=== PATIENT | female | born 1950 | race Caucasian/White ===

== ENCOUNTER 2020-05-18 07:34 | Outpatient (CLI) | payer BC ==
--- NOTE | 2020-05-18 13:00 | NM ---
Nuclear medicine gastric emptying study with medial History: Other gastritis without bleeding Comparison: None. Findings: Transabdominal imaging was performed after the oral administration 2.19 mCi technetium 99 M sulfur colloid orally within eggs. 42% gastric emptying at 31 minutes. 51% gastric emptying at 59 minutes. 77% gastric emptying at 2 josse rs. 75% gastric emptying at 3 hours. 78% gastric emptying at 4 hours. Impression: Delayed gastric emptying with 22% residual at 4 hours.
== END 2020-05-18 07:35 | disposition home or self-care (01) ==
LOC: NM 07:34
PROVIDERS: ATTEND Physician Assistant Medical
DX: K29.60 Other gastritis without bleeding (principal)
CPT/HCPCS: 78264; A9541

== ENCOUNTER 2021-06-19 09:52 | Outpatient (CLI) | payer BC ==
[2021-06-19 11:56] LABS: #Monocytes 0.4 10x3/uL (0.0-1.1); %Basophils 0.4 % (0.0-2.0); %Eosinophils 0.8 % (0.0-6.0); %Lymphocytes 28.5 % (18.0-47.0); %Monocytes 7.3 % (0.0-10.0); %Neutrophils 62.8 % (40.0-75.0); Hemoglobin 13.6 g/dL (12.0-15.5); INR-International Normal Ratio 0.9; Mean Corpuscular HGB CONC 32.4 g/dL (32.0-36.0); Mean Corpuscular Hemoglobin 29.4 pg (27.0-33.0); Mean Corpuscular Volume 90.9 fl (81.6-98.3); Mean Platelet Volume 10.2 fl (7.4-10.4); Platelet Count 268 10x3/uL (150-450); Prothrombin Time 10.5 sec (9.5-12.1); RBC Distribution Width 12.9 % (11.5-14.5); Red Blood Cell (RBC) Count 4.62 10x6/uL (3.90-5.03); White Blood Cell (WBC) Count 4.8 10x3/uL (3.5-10.5)
[2021-06-19 12:07] LABS: Anion Gap 12 mmol/L (10-20); BUN (Urea Nitrogen) 12 mg/dL (9.8-20.1); Calc. Creatinine Clearance 0 mL/min (70-130); Calcium 9.4 mg/dL (7.8-10.44); Carbon Dioxide 27 mmol/L (23-31); Chloride 105 mmol/L (98-107); Glucose 112 mg/dL (80-115); Potassium 4.2 mmol/L (3.5-5.1); Sodium 140 mmol/L (136-145)
[2021-06-19 17:46] LABS: SARS-CoV-2 PCR by NAA Not Detected (NotDetected)
== END 2021-06-19 09:53 | disposition home or self-care (01) ==
LOC: LABBT 09:52
PROVIDERS: ATTEND Orthopaedic Surgery
DX: Z01.818 Encounter for other preprocedural examination (principal); M17.11 Unilateral primary osteoarthritis, right knee; Z20.822 Contact with and (suspected) exposure to COVID-19
CPT/HCPCS: 80048; 85025; 85610; 87081; 93005; 93010; U0003; U0005

== ENCOUNTER 2021-06-20 08:25 | Observation (INO) | payer BC ==
[2021-06-20] MEDS ORDERED: Vancomycin 1 GM/200 ML BAG ONE (09:47)
[2021-06-20] MEDS ORDERED: ceFAZolin 2 GM/DEX 5% 100 ML BAG ONE (09:47)
[2021-06-20] MEDS ORDERED: Tranexamic Acid 1,000 MG/10 ML VIAL ONE (09:48)
[2021-06-20] MEDS ORDERED: Sodium Chloride 0.9% 100 ML ONE (09:48)
[2021-06-20] MEDS ORDERED: Vancomycin 1 GM in Premix Bag 1 BAG IVPB SCH (10:00)
[2021-06-20] MEDS ORDERED: Midazolam HCl 2 mg/2 ml Vial ONE (10:36)
[2021-06-20] MEDS ORDERED: Fentanyl 100 MCG/2 ML VIAL ONE ×6 (10:36→14:22)
[2021-06-20] MEDS ORDERED: Promethazine HCl 25 MG/ML VIAL IM PRN ×3 (11:13→13:21)
[2021-06-20] MEDS ORDERED: Fentanyl 100 MCG/2 ML VIAL SLOW IVP PRN ×3 (11:13→11:32)
[2021-06-20] MEDS ORDERED: HYDROcodone/Acetaminophen 10/325 mg Tablet PO PRN ×2 (11:13)
[2021-06-20] MEDS ORDERED: Acetaminophen 325 MG TAB PO PRN (11:13)
[2021-06-20] MEDS ORDERED: diphenhydrAMINE 25 MG CAP PO PRN (11:13)
[2021-06-20] MEDS ORDERED: Zolpidem Tartrate 5 MG TAB PO PRN ×2 (11:13→11:45)
[2021-06-20] MEDS ORDERED: Ondansetron PF 4 MG/2 ML Vial IVP PRN ×2 (11:13→11:45)
[2021-06-20] MEDS ORDERED: Bupivacaine PF 0.5% 30 ML VIAL ONE (11:21)
[2021-06-20] MEDS ORDERED: Ondansetron PF 4 MG/2 ML Vial ONE (11:35)
[2021-06-20] MEDS ORDERED: Phenylephrine 10 MG/ML VIAL ONE (11:35)
[2021-06-20] MEDS ORDERED: Rocuronium Bromide 10 MG/ML (10ML VIAL) ONE (11:35)
[2021-06-20] MEDS ORDERED: PROPOFOL 200 MG/20 ML VIAL ONE (11:35)
[2021-06-20] MEDS ORDERED: Glycopyrrolate 0.2 MG/ML 5 ML SYRINGE ONE (11:35)
[2021-06-20] MEDS ORDERED: Ketorolac Tromethamine 30 MG/ML VIAL ONE (11:35)
[2021-06-20] MEDS ORDERED: Dexamethasone 20 MG/5 ML VIAL ONE (11:35)
[2021-06-20] MEDS ORDERED: Bupivacaine HCl 0.5%/Epinephrine 1:200,000/PF 30 ml Vial ONE (11:35)
[2021-06-20] MEDS ORDERED: traMADol HCl 50 MG TAB PO PRN ×2 (11:45)
[2021-06-20] MEDS ORDERED: Ropivacaine 0.2% 550 ML 550 ML NERVE BLCK SCH (11:45)
[2021-06-20] MEDS ORDERED: hydrALAZINE 20 MG/ML VIAL ONE (13:21)
[2021-06-20] MEDS ORDERED: Promethazine HCl 25 MG/ML VIAL IVPB PRN (13:21)
[2021-06-20] MEDS ORDERED: hydrALAZINE 20 MG/ML VIAL SLOW IVP PRN (13:21)
[2021-06-20] MEDS ORDERED: Morphine Sulfate 2 MG/ML SYRINGE SLOW IVP PRN (13:21)
[2021-06-20] MEDS ORDERED: Ondansetron HCl/PF 4 MG/2 ML Vial IVP PRN (13:21)
[2021-06-20] MEDS ORDERED: Ketorolac Tromethamine 30 MG/ML VIAL IVP SCH (14:00)
[2021-06-20 15:52] VITALS: BMI 30.8
[2021-06-20] MEDS: Ketorolac Tromethamine 30 MG/ML VIAL IVP SCH ×2 (16:12→17:24)
[2021-06-20] MEDS ORDERED: FLU VACC QS2021-22(65YR UP)/PF 240 MCG/0.7 ML SYRINGE IM ONE (16:15)
[2021-06-20] MEDS: HYDROcodone/Acetaminophen 10/325 mg Tablet PO PRN ×2 (16:38→21:00)
[2021-06-20] MEDS: Sodium Chloride 0.9% 1,000 ML IV SCH ×2 (16:39→21:01)
[2021-06-20] MEDS: ceFAZolin Sodium/D5W 2 GM in Premix Bag 1 BAG IVPB SCH (17:25)
[2021-06-20] MEDS: Amitriptyline HCl 25 MG TAB PO SCH (20:59)
[2021-06-20] MEDS: Aspirin 81 mg Enteric Coated Tablet PO SCH (20:59)
[2021-06-20] MEDS: Atorvastatin Calcium 20 MG TAB PO SCH (20:59)
[2021-06-21] MEDS: Ketorolac Tromethamine 30 MG/ML VIAL IVP SCH ×5 (00:24→23:52)
[2021-06-21] MEDS: ceFAZolin Sodium/D5W 2 GM in Premix Bag 1 BAG IVPB SCH (02:53)
[2021-06-21] MEDS: HYDROcodone/Acetaminophen 10/325 mg Tablet PO PRN ×4 (02:55→21:06)
[2021-06-21] MEDS: Sodium Chloride 0.9% 1,000 ML IV SCH ×2 (06:09→18:12)
[2021-06-21 07:31] LABS: Mean Corpuscular HGB CONC 34.2 g/dL (32.0-36.0); Mean Corpuscular Hemoglobin 31.6 pg (27.0-31.0); Mean Corpuscular Volume 92.6 fL (78.0-98.0); Mean Platelet Volume 7.7 fL (7.4-10.4); Platelet Count 212 thou/uL (130-400); RBC Distribution Width 11.7 % (11.5-14.5); Red Blood Cell (RBC) Count 3.15 mill/uL (4.20-5.40); White Blood Cell (WBC) Count 7.6 thou/uL (4.8-10.8)
[2021-06-21] MEDS: Senokot S 8.6-50 MG TAB PO SCH ×2 (09:55→21:09)
[2021-06-21] MEDS: Aspirin 81 mg Enteric Coated Tablet PO SCH ×2 (09:55→21:05)
[2021-06-21] MEDS: Multivitamin W/ Minerals 1 TAB PO SCH (09:55)
[2021-06-21] MEDS: Ferrous Gluconate 324 MG TAB PO SCH ×2 (09:56→18:12)
[2021-06-21] MEDS: Losartan 25 MG TAB PO SCH (11:31)
[2021-06-21] MEDS: Amitriptyline HCl 25 MG TAB PO SCH (21:05)
[2021-06-21] MEDS: Atorvastatin Calcium 20 MG TAB PO SCH (21:05)
[2021-06-22] MEDS: Sodium Chloride 0.9% 1,000 ML IV SCH (03:45)
[2021-06-22] MEDS: Ketorolac Tromethamine 30 MG/ML VIAL IVP SCH (05:54)
[2021-06-22 06:03] LABS: Hemoglobin 9.3 g/dL (12.0-16.0); Mean Corpuscular HGB CONC 34.5 g/dL (32.0-36.0); Mean Corpuscular Hemoglobin 31.9 pg (27.0-31.0); Mean Corpuscular Volume 92.5 fL (78.0-98.0); Mean Platelet Volume 7.9 fL (7.4-10.4); Platelet Count 183 thou/uL (130-400); RBC Distribution Width 11.8 % (11.5-14.5); Red Blood Cell (RBC) Count 2.93 mill/uL (4.20-5.40); White Blood Cell (WBC) Count 5.7 thou/uL (4.8-10.8)
[2021-06-22] MEDS: Aspirin 81 mg Enteric Coated Tablet PO SCH (08:08)
[2021-06-22] MEDS: Senokot S 8.6-50 MG TAB PO SCH (08:08)
[2021-06-22] MEDS: Multivitamin W/ Minerals 1 TAB PO SCH (08:08)
[2021-06-22] MEDS: Ferrous Gluconate 324 MG TAB PO SCH (08:08)
[2021-06-22] MEDS: Losartan 25 MG TAB PO SCH (08:10)
[2021-06-22] MEDS: HYDROcodone/Acetaminophen 10/325 mg Tablet PO PRN (12:10)
[2021-06-22 12:23] VITALS: BP 135/72; TEMP 98.5
== END 2021-06-22 14:42 | disposition home or self-care (01) ==
LOC: SDC 08:25 → SJJU 11:14 → SDC 18:08
PROVIDERS: ADMIT Orthopaedic Surgery; ATTEND Orthopaedic Surgery
PROC: 0SRC0J9 Replacement of Right Knee Joint with Synthetic Substitute, Cemented, Open Approach (ICD-10-PCS; principal; 2021-06-20)
PROC: 8E0YXBZ Computer Assisted Procedure of Lower Extremity (ICD-10-PCS; 2021-06-20)
PROC: 3E0T3BZ Introduction of Anesthetic Agent into Peripheral Nerves and Plexi, Percutaneous Approach (ICD-10-PCS; 2021-06-20)
DX: M17.0 Bilateral primary osteoarthritis of knee (principal); I95.9 Hypotension, unspecified; D64.9 Anemia, unspecified; E78.00 Pure hypercholesterolemia, unspecified; I10 Essential (primary) hypertension; E78.5 Hyperlipidemia, unspecified; K31.84 Gastroparesis; Z79.899 Other long term (current) drug therapy
CPT/HCPCS: 36415; 85027; 96374; 96375; 96376; A4306; C1713; C1776; G0378; J0360; J1100; J1885; J2250; J2370; J2405; J2704; J2795; J3010; J3370; J3490; J7050; S0020

== ENCOUNTER 2022-08-29 10:27 | Outpatient (CLI) | payer BC | END 2022-08-29 10:28 | disposition home or self-care (01) | LOC: BICMAMMO 10:27 | PROVIDERS: ATTEND Family Medicine | DX: Z12.31 Encounter for screening mammogram for malignant neoplasm of breast (principal) | CPT/HCPCS: 77063; 77067 ==

== ENCOUNTER 2024-08-19 12:51 | Outpatient (CLI) | payer BC | END 2024-08-19 12:52 | disposition home or self-care (01) | LOC: BICMAMMO 12:51 | PROVIDERS: ATTEND Nurse Practitioner Family | DX: Z12.31 Encounter for screening mammogram for malignant neoplasm of breast (principal) | CPT/HCPCS: 77063; 77067 ==